=== PATIENT | male | born 1955 | race Caucasian/White ===

== ENCOUNTER 2017-02-26 12:34 | Outpatient (CLI) | payer OTHER ==
[2017-02-26 18:11] LABS: BASOPHILS # (AUTO) 0.1 10^3/uL (0.0-0.1); BASOPHILS % (AUTO) 1.3 %; EOSINOPHILS # (AUTO) 0.2 10^3/uL (0.0-0.7); EOSINOPHILS % (AUTO) 2.9 %; HCT - HEMATOCRIT 43.2 % (42.0-52.0); HGB - HEMOGLOBIN 14.5 g/dL (14.0-18.0); LYMPHOCYTES % (AUTO) 35.3 %; MEAN CORPUSCULAR HEMOGLOBIN 30.9 pg (27.0-31.0); MEAN CORPUSCULAR HGB CONC 33.5 g/dL (32.0-36.0); MEAN CORPUSCULAR VOLUME 92.3 fL (80.0-94.0); MEAN PLATELET VOLUME 8.4 fL (7.4-11.4); MONOCYTES # (AUTO) 0.7 10^3/uL (0.0-1.0); MONOCYTES % (AUTO) 11.8 %; NEUTROPHILS # (AUTO) 2.7 10^3/uL (1.5-6.6); NEUTROPHILS % (AUTO) 48.7 %; NUCLEATED RED BLOOD CELLS AUTO 0.3 /100WBC; RED BLOOD COUNT 4.68 10^6/uL (4.70-6.10); RED CELL DISTRIBUTION WIDTH 13.5 % (12.0-15.0); UNCORRECTED WHITE BLOOD COUNT 5.6 x10^3/uL; WHITE BLOOD COUNT 5.6 x10^3/uL (4.8-10.8)
[2017-02-26 18:34] LABS: ALBUMIN/GLOBULIN RATIO 1.6 (1.0-2.2); BILIRUBIN,TOTAL 0.6 mg/dL (0.2-1.0); BUN - BLOOD UREA NITROGEN 15 mg/dL (6-20); CALCIUM 9.9 mg/dL (8.5-10.3); CARBON DIOXIDE - CO2 26 mmol/L (21-32); CHLORIDE 106 mmol/L (101-111); CHOL/HDL RATIO 5.6 (<5.0); CHOLESTEROL 218 mg/dL; GFR - MDRD 76 (>89); GLUCOSE 103 mg/dL (70-100); HDL CHOLESTEROL 39 mg/dL; LDL/HDL RATIO 3.6 (<3.6); POTASSIUM 4.5 mmol/L (3.5-5.0); SODIUM 139 mmol/L (135-145); TOTAL PROTEIN 7.9 g/dL (6.7-8.2); TRIGLYCERIDES 194 mg/dL; VLDL CHOLESTEROL 39 mg/dL
== END 2017-02-26 12:35 | disposition home or self-care (01) ==
LOC: LAB.F 12:34
PROVIDERS: ATTEND Internal Medicine
DX: N40.1 Benign prostatic hyperplasia with lower urinary tract symptoms (principal); E78.00 Pure hypercholesterolemia, unspecified
CPT/HCPCS: 36415; 80050; 80061

== ENCOUNTER 2017-03-24 14:21 | Emergency (ER) | payer OTHER ==
--- NOTE | 2017-03-24 15:01 | ED Physician Documentation ---
PD HPI LOWER EXT INJURY - Stated complaint Stated Complaint: FT LAC - Chief complaint Chief Complaint: Ext Problem - History obtained from History obtained from: Patient - History of Present Illness PD HPI LOW EXT INJURY LOCATION: Left, Foot Type of injury: Blunt / blow Timing - onset: How many hours ago (1), Today Timing - details: Abrupt onset, Still present Worsened by: Moving (he says it hurts some and bleeds more with ROM/walking.), Palpating Associated symptoms: Swelling. No: Weakness, Numbness Contributing factors: No: Anticoagulated Similar symptoms before: Has not had sx before Recently seen: Not recently seen Review of Systems Constitutional: denies: Fever, Chills Nose: denies: Rhinorrhea / runny nose, Congestion Throat: denies: Sore throat Respiratory: denies: Cough Skin: reports: Laceration (s). denies: Rash Neurologic: denies: Focal weakness, Numbness, Near syncope PD PAST MEDICAL HISTORY - Past Medical History Cardiovascular: Hypertension, High cholesterol GI: GERD Psych: Depression Musculoskeletal: None - Past Surgical History Past Surgical History: No - Present Medications Home Medications: Ambulatory Orders Medication Instructions Recorded Confirmed Escitalopram [Lexapro] 10 mg PO DAILY 03/21/14 03/21/14 Ranitidine HCl [Zantac] 150 mg PO DAILY 03/21/14 03/21/14 Atorvastatin [Lipitor] 40 mg PO DAILY 03/24/17 03/24/17 - Allergies Allergies/Adverse Reactions: Allergies Allergy/AdvReac Type Severity Reaction Status Date / Time codeine Allergy Intermediate Respiratory Verified 03/21/14 20:18 - Social History Does the pt smoke?: No Smoking Status: Never smoker Does the pt drink ETOH?: No Does the pt have substance abuse?: No - Immunizations Immunizations are current?: No Immunizations: TDAP >10years/unknown - POLST Patient has POLST: Yes PD ED PE NORMAL - Vitals Vital signs reviewed: Yes - General General: Alert and oriented X 3, No acute distress, Well developed/nourished - Derm Derm: Normal color, Warm and dry - Extremities Extremities: Other (dorsum left foot with focal tenderness and swelling with some dark blood visible c/w subcut hematoma. Normal color and cap refill in toes. ) - Neuro Neuro: No motor deficit, No sensory deficit Results - Vitals Vitals: Oxygen O2 Source Room air - Rads (name of study) foot Radiology: Prelim report reviewed, EMP read contemporaneously (no fractures; Ca fascia plantar aspect, not in area of injury. ) Procedures - Laceration (location) dorsum left foot Length in cm: 2 Wound type: Linear, Into subcut fat, Clean (with some subcuteous hematoma.) Neurovascular status: Sensory intact, Motor intact, Vascular intact Anesthesia: Lidocaine 1% with epi Wound Preparation: Irrigated copiously NS, To the base, Other (clot expressed from under skin as best possible) Skin layer closure: Nylon, Interrupted, Size #-0 - enter number (4) Other: Patient tolerated well, No complications, Neurovascular intact, Dressing applied Complexity: Simple PD MEDICAL DECISION MAKING - ED course Complexity details: reviewed results, considered differential, d/w patient Departure - Departure Disposition: 01 Home, Self Care Clinical Impression: Traumatic hematoma of foot Qualifiers: Encounter type: initial encounter Laterality: left Qualified Code(s): S90.32XA - Contusion of left foot, initial encounter Puncture wound of foot Qualifiers: Encounter type: initial encounter Laterality: left Qualified Code(s): S91.332A - Puncture wound without foreign body, left foot, initial encounter Condition: Stable Record reviewed to determine appropriate education?: Yes Instructions: ED Wound Puncture General, ED Hematoma Follow-Up: German Rolon MD [Primary Care Provider] - Comments: It is okay to wash and shower. Clean off the wound twice a day with soap and water, or peroxide and water. Apply some antibiotic ointment to it to keep it moist. Also to watch for signs of infection such as purulence, redness or increasing pain. Return to your primary care or the ER at the specified time for suture removal. Suture removal 10-14 days. Wrap and elevate the foot for the swelling over the next 2-3 days. Tylenol or ibuprofen if needed for pains. Discharge Date/Time: 03/24/17 16:47
--- NOTE | 2017-03-24 15:40 | XRAY Preliminary Report ---
Exam: XR Foot 3 View LT IMPRESSION: Dorsal soft tissue swelling without evidence of fracture. [facility] SITE ID: [id number]
--- NOTE | 2017-03-24 15:43 | XRAY Report ---
EXAM: LEFT FOOT RADIOGRAPHY EXAM DATE: 03/24/2017 03:04 PM. CLINICAL HISTORY: Puncture wound mid-foot. COMPARISON: None. TECHNIQUE: 3 views. FINDINGS: Bones: No definite fracture. Ossicles adjacent to the base of the fifth metatarsal. Joints: Normal. No subluxations. Soft Tissues: Dorsal soft tissue swelling. IMPRESSION: Dorsal soft tissue swelling without evidence of fracture. [facility] Referring Provider Line: [phone] SITE ID: [id number]
[2017-03-24] MEDS ORDERED: TETANUS/DIPHTHERIA/PERTUSSIS 0.5 ML SYRINGE IM ONE ×2 (16:23→16:28)
[2017-03-24 16:47] VITALS: BP 125/79
== END 2017-03-24 16:47 | disposition home or self-care (01) ==
LOC: ED 14:21
DX: S91.312A Laceration without foreign body, left foot, initial encounter (principal); S90.32XA Contusion of left foot, initial encounter; X58.XXXA Exposure to other specified factors, initial encounter; Z23 Encounter for immunization; I10 Essential (primary) hypertension
CPT/HCPCS: 12001; 90471; 99283

== ENCOUNTER 2017-10-20 09:29 | Outpatient (CLI) | payer OTHER ==
[2017-10-20 18:15] LABS: ALBUMIN 4.5 g/dL (3.2-5.5); ALBUMIN/GLOBULIN RATIO 1.6 (1.0-2.2); ALKALINE PHOSPHATASE 58 IU/L (42-121); ALT ALANINE AMINOTRANSFERASE 37 IU/L (10-60); AST ASPARTATE AMINOTRANSFERASE 29 IU/L (10-42); BUN - BLOOD UREA NITROGEN 14 mg/dL (6-20); CALCIUM 9.4 mg/dL (8.5-10.3); CARBON DIOXIDE - CO2 24 mmol/L (21-32); CHLORIDE 105 mmol/L (101-111); CHOL/HDL RATIO 3.4 (<5.0); CHOLESTEROL 120 mg/dL; CREATININE 1.2 mg/dL (0.6-1.2); GFR - MDRD 61 (>89); GLUCOSE 114 mg/dL (70-100); HDL CHOLESTEROL 35 mg/dL; LDL CHOLESTEROL,CALCULATED 56 mg/dL; LDL/HDL RATIO 1.6 (<3.6); SODIUM 138 mmol/L (135-145); TOTAL PROTEIN 7.3 g/dL (6.7-8.2); VLDL CHOLESTEROL 29 mg/dL
[2017-10-20 18:22] LABS: BILIRUBIN,URINE NEGATIVE (NEGATIVE); GLUCOSE, URINE (UA) NEGATIVE (NEGATIVE); KETONES,URINE (UA) NEGATIVE (NEGATIVE); LEUKOCYTE ESTERASE, URINE NEGATIVE (NEGATIVE); NITRITE,URINE NEGATIVE (NEGATIVE); OCCULT BLOOD,URINE NEGATIVE (NEGATIVE); PROTEIN,URINE NEGATIVE (NEGATIVE); UROBILINOGEN,URINE 0.2 (NORMAL) E.U./dL (NORMAL)
[2017-10-20 18:25] LABS: CLARITY,URINE CLEAR (CLEAR)
[2017-10-20 18:31] LABS: BACTERIA,URINE Rare /HPF (None Seen); RBC,URINE 0-5 /HPF (0-5); SQUAMOUS EPITHELIAL CELL,UR NONE SEEN (<= Few)
== END 2017-10-20 09:30 | disposition home or self-care (01) ==
LOC: LAB.F 09:29
PROVIDERS: ATTEND Family Medicine
DX: I10 Essential (primary) hypertension (principal); E78.00 Pure hypercholesterolemia, unspecified; Z12.5 Encounter for screening for malignant neoplasm of prostate
CPT/HCPCS: 36415; 80053; 80061; 81001; 83721; 84153